=== PATIENT | female | born 1995 | race African-American/Black ===

== ENCOUNTER 2020-05-01 21:18 | Emergency (ER) | payer SELFPAY ==
[~2020-05-01] VITALS: Ht 165.1 cm; Wt 67.6 kg
[2020-05-01 21:30] VITALS: BP 139/99
[2020-05-01] MEDS ORDERED: Bacitracin Oint UD TOPIC ONE (21:45)
[2020-05-01] MEDS ORDERED: Tetanus/Diptheria/Pertussis IM ONE (21:45)
[2020-05-01] MEDS ORDERED: Morphine Sulfate 4mg/ml Inj (IV USE ONLY) IVP ONE (21:45)
[2020-05-01 21:59] LABS: BASOPHILS % (AUTO) 0.8 % (0.0-2.0); EOSINOPHILS % (AUTO) 0.2 % (0.0-3.0); HEMATOCRIT 38.2 % (37.0-47.0); HEMOGLOBIN 12.2 G/DL (12.0-16.0); LYMPHOCYTES % (AUTO) 24.2 % (20.0-45.0); MEAN CORPUSCULAR VOLUME 94 FL (80-99); MONOCYTES % (AUTO) 5.1 % (1.0-10.0); NEUTROPHILS % (AUTO) 69.7 % (45.0-75.0); PLATELET COUNT 269 K/UL (150-450); RED BLOOD COUNT 4.04 M/UL (4.20-5.40); RED CELL DISTRIBUTION WIDTH 13.3 % (11.6-14.8); WHITE BLOOD COUNT 10.3 K/UL (4.8-10.8)
[2020-05-01 22:09] LABS: ANION GAP 14 mmol/L (5-15); BLOOD UREA NITROGEN 16 mg/dL (7-18); CALCIUM 8.9 MG/DL (8.5-10.1); CARBON DIOXIDE 22 MMOL/L (21-32); CHLORIDE 105 MMOL/L (98-107); CREATININE 1.2 MG/DL (0.55-1.30); POTASSIUM 4.1 MMOL/L (3.5-5.1); SODIUM 141 MMOL/L (136-145)
[2020-05-01 22:14] LABS: ALANINE AMINOTRANSFERASE 17 U/L (12-78); ALBUMIN 4.1 G/DL (3.4-5.0); ALBUMIN/GLOBULIN RATIO 1.1 (1.0-2.7); ALKALINE PHOSPHATASE 54 U/L (46-116); ASPARTATE AMINO TRANSFERASE 17 U/L (15-37); BILIRUBIN,TOTAL 0.3 MG/DL (0.2-1.0)
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
[2020-05-01] MEDS ORDERED: ceFAZolin sod 1 GM in NS 55 ML IVPB ONE (23:00)
[2020-05-01] MEDS ORDERED: IBUPROFEN600 M1 ORAL (23:12)
[2020-05-01] MEDS ORDERED: CEPHALEXIN500 MG ORAL (23:12)
[2020-05-01] MEDS ORDERED: MUPIROCIN22 GM TOPIC (23:14)
[2020-05-01 23:33] VITALS: BP 123/83
[2020-05-02] MEDS ORDERED: Morphine Sulfate 2mg/ml Inj(IV/IM USE ONLY) IVP ONE
[2020-05-02] MEDS ORDERED: Omnipaque-300 100ml vial INJ ONE
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
--- NOTE | 2020-05-02 02:35 | Diagnostic Imaging Report ---
EXAM: CT Chest With Intravenous Contrast CLINICAL HISTORY: INJ TECHNIQUE: Axial computed tomography images of the chest with intravenous contrast. CTDI is 59.40 mGy and DLP is 435.90 mGy-cm. One or more of the following dose reduction techniques were used: automated exposure control, adjustment of the mA and/or kV according to patient size, use of iterative reconstruction technique. COMPARISON: No relevant prior studies available. FINDINGS: Lungs: Unremarkable. Pleural space: Unremarkable. No pneumothorax. No significant effusion. Heart: Unremarkable. No cardiomegaly. No significant pericardial effusion. Bones/joints: Unremarkable. No acute fracture. No dislocation. Soft tissues: Unremarkable. Vasculature: Unremarkable. No thoracic aortic aneurysm. Lymph nodes: Unremarkable. IMPRESSION: Normal chest CT. EXAM: CT Abdomen and Pelvis With Intravenous Contrast CLINICAL HISTORY: INJ TECHNIQUE: Axial computed tomography images of the abdomen and pelvis with intravenous contrast. CTDI is 59.40 mGy and DLP is 435.90 mGy-cm. One or more of the following dose reduction techniques were used: automated exposure control, adjustment of the mA and/or kV according to patient size, use of iterative reconstruction technique. COMPARISON: No relevant prior studies available. FINDINGS: Lung bases: Unremarkable. ABDOMEN: Liver: Unremarkable. Gallbladder and bile ducts: Unremarkable. Pancreas: Unremarkable. Spleen: Unremarkable. Adrenals: Unremarkable. Kidneys and ureters: Unremarkable. Stomach and bowel: Unremarkable. PELVIS: Appendix: Appendix is unremarkable. Bladder: Unremarkable. Reproductive: Involuting follicle or cyst within the right ovary. ABDOMEN and PELVIS: Intraperitoneal space: Small amount of free fluid in the pelvis which may be secondary to recent rupture of follicle or cyst. Bones/joints: No acute fracture. No dislocation. Soft tissues: Unremarkable. Vasculature: Unremarkable. Lymph nodes: Unremarkable. IMPRESSION: Involuting follicle or cyst within the right ovary. Small amount of free fluid in the pelvis which may be secondary to recent rupture of follicle or cyst.
[2020-05-02 03:15] VITALS: BP 118/79
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
== END 2020-05-02 03:15 | disposition home or self-care (01) ==
LOC: EMR 21:48
DX: S63.601A Unspecified sprain of right thumb, initial encounter (principal); S00.03XA Contusion of scalp, initial encounter; T14.8XXA Other injury of unspecified body region, initial encounter; N28.1 Cyst of kidney, acquired; N83.201 Unspecified ovarian cyst, right side; V03.90XA Pedestrian on foot injured in collision with car, pick-up truck or van, unspecified whether traffic or nontraffic accident, initial encounter; Y93.01 Activity, walking, marching and hiking; Y92.410 Unspecified street and highway as the place of occurrence of the external cause
CPT/HCPCS: 29125; 36415; 70450; 71045; 71260; 73140; 74177; 76700; 80053; 84703; 85025; 90471; 90715; 96361; 96365; 96375; 96376; 99284; J0690; J2270; J7030; Q9965